=== PATIENT | male | born 1995 | race Caucasian/White ===

== ENCOUNTER 2019-01-20 14:51 | Emergency (ER) | payer MEDICAID ==
[2019-01-20] MEDS ORDERED: Sodium Chloride 0.9% 10 ML Syringe FLUSH PRN (15:32)
[2019-01-20] MEDS ORDERED: Ondansetron 4 MG/2 ML SDV IVPUSH ONE (15:33)
[2019-01-20] MEDS ORDERED: Sodium Chloride 0.9% 1,000 ML IV SCH (15:45)
[2019-01-20 16:05] LABS: CHLORIDE,CL 101 mmol/L (98-107); SODIUM,NA 140 mmol/L (136-145)
--- NOTE | 2019-01-20 16:44 | EDM.PDOC ---
ED HPI GENERAL MEDICAL PROBLEM - General Chief Complaint: General Stated Complaint: lightheaded, dizzy, nauseous Time Seen by Provider: 01/20/19 15:00 Source of Information: Reports: Patient History Limitations: Reports: No Limitations - History of Present Illness INITIAL COMMENTS - FREE TEXT/NARRATIVE: Patient is a 23-year-old who comes in not feeling well states that he's been having nausea weakness for the last 3 days yesterday he had a headache all day long states he's been drinking okay has been working in the hot place. Onset: Gradual Duration: Day(s):, Getting Worse Location: Reports: Generalized Improves with: Reports: None Worsens with: Reports: None Context: Reports: Activity Associated Symptoms: Reports: Headaches, Nausea/Vomiting - Related Data Allergies Allergy/AdvReac Type Severity Reaction Status Date / Time adhesive Allergy Rash Verified 01/20/19 14:55 bee venom protein (honey bee) Allergy Bronchospas Verified 01/20/19 14:55 ms oxycodone Allergy Hallucinati Verified 01/20/19 14:55 ons peanut Allergy Other Verified 01/20/19 14:55 soy Allergy Headache Verified 01/20/19 14:55 Home Meds: Home Meds Gabapentin [Neurontin] 300 mg PO TID 02/07/14 [History] ARIPiprazole [Abilify] 5 mg PO DAILY 01/20/19 [History] Cyclobenzaprine [Flexeril] 10 mg PO TID PRN 01/20/19 [History] DULoxetine HCl [Cymbalta] 90 mg PO DAILY 01/20/19 [History] lamoTRIgine [Lamictal] 150 mg PO BID 01/20/19 [History] Social & Family History - Tobacco Use Smoking Status *Q: Current Every Day Smoker Years of Tobacco use: 7 Packs/Tins Daily: 0.1 Used Tobacco, but Quit: No Second Hand Smoke Exposure: No - Caffeine Use Caffeine Use: Reports: Coffee, Soda - Recreational Drug Use Recreational Drug Use: Yes Recreational Drug Type: Reports: Marijuana/Hashish Recreational Drug Use Frequency: Not Used In Over 6 Months - Living Situation & Occupation Living situation: Reports: Single, with Family Occupation: Employed ED ROS GENERAL - Review of Systems Review Of Systems: See Below Constitutional: Reports: No Symptoms HEENT: Reports: No Symptoms Respiratory: Reports: No Symptoms Cardiovascular: Reports: No Symptoms Endocrine: Reports: No Symptoms GI/Abdominal: Reports: No Symptoms : Reports: No Symptoms Musculoskeletal: Reports: No Symptoms Skin: Reports: No Symptoms Neurological: Reports: Headache, Weakness Psychiatric: Reports: Depression Hematologic/Lymphatic: Reports: No Symptoms Immunologic: Reports: No Symptoms ED EXAM, GENERAL - Physical Exam Exam: See Below Exam Limited By: No Limitations General Appearance: Alert, WD/WN, No Apparent Distress Ears: Normal External Exam, Normal Canal, Hearing Grossly Normal, Normal TMs Ear Exam: Bilateral Ear: Auricle Normal, Canal Normal, TM normal Nose: Normal Inspection, Normal Mucosa, No Blood Throat/Mouth: Normal Inspection, Normal Lips, Normal Teeth, Normal Gums, Normal Oropharynx, Normal Voice, No Airway Compromise Head: Atraumatic, Normocephalic Neck: Normal Inspection, Supple, Non-Tender, Full Range of Motion Respiratory/Chest: No Respiratory Distress, Lungs Clear, Normal Breath Sounds, No Accessory Muscle Use, Chest Non-Tender Cardiovascular: Normal Peripheral Pulses, Regular Rate, Rhythm, No Edema, No Gallop, No JVD, No Murmur, No Rub GI/Abdominal: Normal Bowel Sounds, Soft, Non-Tender, No Organomegaly, No Distention, No Abnormal Bruit, No Mass (Male) Exam: No Hernia, Normal Inspection, Normal Prostate, Circumcised Rectal (Males) Exam: Normal Exam, Normal Rectal Tone, Prostate Normal Back Exam: Normal Inspection, Full Range of Motion, NT Extremities: Normal Inspection, Normal Range of Motion, Non-Tender, Normal Capillary Refill, No Pedal Edema Neurological: Alert, Oriented, CN II-XII Intact, Normal Cognition, Normal Gait, Normal Reflexes, No Motor/Sensory Deficits Psychiatric: Normal Affect, Normal Mood Skin Exam: Warm, Dry, Intact, Normal Color, No Rash Lymphatic: No Adenopathy Course - Vital Signs Last Recorded V/S: Last Vital Signs Temp 98.2 F 01/20/19 14:51 Pulse 114 H 01/20/19 15:09 Resp 18 01/20/19 15:09 BP 126/83 01/20/19 15:09 Pulse Ox 99 01/20/19 15:09 - Orders/Labs/Meds Orders: Active Orders 24 hr Category Date Time Status Sodium Chloride 0.9% [Normal Saline] 1,000 ml Med 01/20/19 15:45 Ordered IV ASDIRECTED Sodium Chloride 0.9% [Saline Flush] Med 01/20/19 15:32 Ordered 10 ml FLUSH ASDIRECTED PRN Saline Lock Insert [OM.PC] Stat Oth 01/20/19 15:32 Ordered Medication Orders Sodium Chloride (Normal Saline) 1,000 mls @ 999 mls/hr IV ASDIRECTED PATRICA Last Admin: 01/20/19 15:47 Dose: 999 mls/hr Sodium Chloride (Saline Flush) 10 ml FLUSH ASDIRECTED PRN PRN Reason: Keep Vein Open Labs: Laboratory Tests 01/20/19 01/20/19 01/20/19 Range/Units 15:50 15:50 15:54 WBC 9.5 (4.0-10.2) K/uL RBC 5.29 (4.33-5.41) M/uL Hgb 15.3 D (13.1-16.8) g/dL Hct 44.9 (39.0-49.0) % MCV 84.9 (84.0-98.0) fL MCH 28.9 (28.2-33.3) pg MCHC 34.1 (31.7-36.0) g/dL RDW 13.3 (11.2-14.1) % Plt Count 164 (150-350) K/uL Neut % (Auto) 63.7 (45.0-80.0) % Lymph % (Auto) 28.6 (10.0-50.0) % Harris % (Auto) 6.6 (2.0-14.0) % Eos % (Auto) 0.9 (0.0-5.0) % Baso % (Auto) 0.2 (0.0-2.0) % Neut # (Auto) 6.04 (1.40-7.00) K/uL Lymph # (Auto) 2.72 (0.50-3.50) K/uL Harris # (Auto) 0.63 (0.00-1.00) K/uL Eos # (Auto) 0.09 (0.00-0.50) K/uL Baso # (Auto) 0.02 (0.00-0.20) K/uL Sodium 140 (136-145) mmol/L Potassium 3.4 L (3.5-5.1) mmol/L Chloride 101 (98-107) mmol/L Carbon Dioxide 29.8 (21.0-32.0) mmol/L BUN 13 (7-18) mg/dL Creatinine 0.81 (0.51-1.17) mg/dL Est Cr Clr Drug Dosing TNP Estimated GFR (MDRD) > 60 mL/min Glucose 88 (74-106) mg/dL Calcium 9.7 (8.5-10.1) mg/dL Specimen Type Urinvoid Urine Color Yellow Urine Appearance Clear Urine pH 7.5 (5.0-9.0) Ur Specific Roland 1.015 (1.005-1.030) Urine Protein Negative (NEGATIVE) mg/dL Urine Glucose (UA) Negative (NEGATIVE) mg/dL Urine Ketones Negative (NEGATIVE) mg/dL Urine Occult Blood Negative (NEGATIVE) Urine Nitrite Negative (NEGATIVE) Urine Bilirubin Negative (NEGATIVE) Urine Urobilinogen 0.2 (0.2-1.0) E.U./dL Ur Leukocyte Esterase Negative (NEGATIVE) Urine RBC 0-5 /HPF Urine WBC 0-5 /HPF Ur Epithelial Cells Rare /LPF Urine Bacteria Rare (NONE TO FEW) /HPF Urine Mucus Few H (NEGATIVE) /LPF Meds: Medications Generic Name Dose Route Start Last Admin Trade Name Freq PRN Reason Stop Dose Admin Sodium Chloride 1,000 mls @ 999 mls/hr 01/20/19 15:45 01/20/19 15:47 Normal Saline IV 999 mls/hr ASDIRECTED PATRICA Administration Sodium Chloride 10 ml 01/20/19 15:32 Saline Flush FLUSH ASDIRECTED PRN Keep Vein Open Discontinued Medications Generic Name Dose Route Start Last Admin Trade Name Freq PRN Reason Stop Dose Admin Ondansetron HCl 4 mg 01/20/19 15:33 01/20/19 15:46 Zofran IVPUSH 01/20/19 15:34 4 mg ONETIME ONE Administration Departure - Departure Time of Disposition: 16:44 Disposition: Home, Self-Care 01 Condition: Fair Clinical Impression: Dehydration, moderate, Nausea - Discharge Information *PRESCRIPTION DRUG MONITORING PROGRAM REVIEWED*: No *COPY OF PRESCRIPTION DRUG MONITORING REPORT IN PATIENT LUL: No Referrals: PCP,Unknown [Primary Care Provider] - Care Plan Goals: Patient was hydrated with normal saline given Zofran for nausea feeling much better at this time we'll send him home he is to take Gatorade at home - My Orders Last 24 Hours: My Active Orders 01/20/19 15:32 Sodium Chloride 0.9% [Saline Flush] 10 ml FLUSH ASDIRECTED PRN Saline Lock Insert [OM.PC] Stat 01/20/19 15:45 Sodium Chloride 0.9% [Normal Saline] 1,000 ml IV ASDIRECTED - Assessment/Plan Last 24 Hours: My Active Orders 01/20/19 15:32 Sodium Chloride 0.9% [Saline Flush] 10 ml FLUSH ASDIRECTED PRN Saline Lock Insert [OM.PC] Stat 01/20/19 15:45 Sodium Chloride 0.9% [Normal Saline] 1,000 ml IV ASDIRECTED
== END 2019-01-20 17:10 | disposition home or self-care (01) ==
LOC: LL.ED 14:51
DX: E86.0 Dehydration (principal); R11.2 Nausea with vomiting, unspecified; F17.210 Nicotine dependence, cigarettes, uncomplicated; Z91.030 Bee allergy status; Z91.010 Allergy to peanuts; Z79.899 Other long term (current) drug therapy
CPT/HCPCS: 36415; 80048; 81001; 85025; 96361; 96374; 99284; J2405; J7030